=== PATIENT | female | born 1985 | race Two or more races ===

== ENCOUNTER → 2016-05-30 | Outpatient (CLI) | payer OTHER ==
--- NOTE | 2016-05-30 15:30 | DX ---
Right femur, 2 views History: Fell from stool, work related injury. Trauma, pain. Findings: No acute fracture or dislocation identified. Right femur demonstrates no evidence of fractu re or dislocation. Femoral head and neck region appear intact. No definite joint effusion in the righ t knee region. Impression: 1. No definite acute fracture. 2. No evidence of right femur fracture.
--- NOTE | 2016-05-30 16:07 | DX ---
Lumbar spine, 5 views History: Fell from stool, work related injury. Trauma, pain. Findings: No lumbar compression fractures. Five vertebral body segments. No definite transverse proc ess fractures. Bilateral 12th ribs appear intact. No evidence of spondylolysis or spondylolisthesis. There is lucency vertically through the left L4 transverse process with step off, which suggests a fr acture. There is bilateral L5 prominent transverse processes, which probably suggests pseudoarthrosis , although there is a lucency through the left L5 transverse process, which is indeterminate. No spon dylolisthesis. Impression: 1. No lumbar compression fractures or spondylolisthesis. 2. Suspect left L4 transverse process fracture. 3. Bilateral L5 large transverse processes, suggesting pseudoarthrosis with questionable fracture thr ough the left L5 pseudoarthrosis. 4. Consider additional MRI or CT imaging. Findings and recommendations discussed with Dr. Juno Macedo at 1600 hours today. A test result has been communicated to a licensed care provider and documented in [employer], 4:04:05 PM , 05/30/2016, [employer] Message ID [id number].
== END ==
LOC: BRMIMAGING 13:42
PROVIDERS: ATTEND Physician Assistant
DX: M79.604 Pain in right leg (principal)
CPT/HCPCS: 72100-PO; 73551-PO

== ENCOUNTER → 2016-05-31 | Outpatient (CLI) | payer OTHER ==
--- NOTE | 2016-05-31 10:31 | DX ---
Lumbar spine AP lateral flexion and extension 4 views 0913 hours. History: Fell backwards off a tall stool yesterday at work with back pain. Findings: Comparison to May 30, 2016. Vertebral body heights are well-maintained. There are no subluxations. The previously suspected fract ures associate with the left transverse process of L4 and L5 appears 2 represents overlapping shadows from stool and gas. This finding is not persistent on today's study. No fractures are seen about the lumbar spine. There are no subluxations with flexion and extension. Intervertebral disk spaces are n ormal. Impression: 1. Normal AP and lateral lumbar spine series with flexion and extension. 2. The previously suspected fracture left transverse process of L4 and L5 is not appreciated on today 's study. This probably represented overlapping stool and gas on the prior exam.
== END ==
LOC: BRMIMAGING 09:09
PROVIDERS: ATTEND Internal Medicine
DX: M54.9 Dorsalgia, unspecified (principal); W07.XXXA Fall from chair, initial encounter
CPT/HCPCS: 72100-PO